=== PATIENT | male | born 1995 | race Caucasian/White ===

== ENCOUNTER 2018-11-18 19:05 | Emergency (ER) | payer OTHER ==
[~2018-11-18] VITALS: Ht 175.3 cm; Wt 74.8 kg
[2018-11-18 20:00] VITALS: BP 107/67
== END 2018-11-18 20:00 | disposition home or self-care (01) ==
LOC: M.ERS 19:05
DX: S61.201A Unspecified open wound of left index finger without damage to nail, initial encounter (principal); W26.0XXA Contact with knife, initial encounter; Y93.89 Activity, other specified; Y92.89 Other specified places as the place of occurrence of the external cause; Y99.8 Other external cause status; Z88.8 Allergy status to other drugs, medicaments and biological substances

== ENCOUNTER → 2018-11-18 | Outpatient (CLI) | payer OTHER ==
[~2018-11-18] MED LIST: ACETAMINOPHEN-1 EAC1 PO; MEDROLDOSEPACK PO; ZOFRAN ODT4 MG PO; ZPAK PO
== END ==
LOC: M.ULTRA 11:00
DX: R59.0 Localized enlarged lymph nodes (principal)